=== PATIENT | male | born 1990 | race Caucasian/White ===

== ENCOUNTER → 2021-02-20 | Outpatient (CLI) | payer OTHER ==
[~2021-02-20] MED LIST: OXYC-325 PO
== END ==
LOC: LAB 11:33
PROVIDERS: ATTEND Surgery
DX: Z01.812 Encounter for preprocedural laboratory examination (principal); L05.91 Pilonidal cyst without abscess; Z20.822 Contact with and (suspected) exposure to COVID-19
CPT/HCPCS: U0003

== ENCOUNTER 2021-02-25 07:01 | Day surgery (SDC) | payer OTHER ==
[~2021-02-25 07:01] MED LIST changes: +ACETAMINOPHEN 500 MG TABLET PO ONE; +HYDROmorphone 2 MG/ML VIAL IVP PRN; +IV RINGERS,LACTATED 1000ML 1,000 ML IV SCH; +MORPHINE SULFATE 2 MG/ML VIAL. IVP PRN; -OXYC-325 PO; +PROCHLORPERAZINE 10 MG/2 ML VIAL. IVP PRN; +fentaNYL PF VIAL 100 MCG/2 ML VIAL IVP PRN
[2021-02-25] MEDS ORDERED: BUPIVACAINE-EPI 0.25% 30 ML VIAL KIT. ONE (07:14)
[2021-02-25] MEDS ORDERED: ONDANSETRON PF 4 MG/2 ML VIAL. ONE ×2 (07:37→09:57)
[2021-02-25] MEDS ORDERED: DEXAMETHASONE SOD PHOS 4 MG/ML VIAL ONE (07:37)
[2021-02-25] MEDS ORDERED: fentaNYL PF VIAL 100 MCG/2 ML VIAL ONE (07:37)
[2021-02-25] MEDS ORDERED: PROPOFOL 10 MG/ML (20ML) VIAL. IV ONE ×2 (07:37→08:37)
[2021-02-25] MEDS ORDERED: LIDOCAINE 2% PF 5 ML VIAL. ONE (07:37)
[2021-02-25] MEDS ORDERED: SUCCINYLCHOLINE 200 MG/10 ML VIAL. ONE (07:56)
[2021-02-25] MEDS ORDERED: ROCURONIUM 50 MG/5 ML VIAL. ONE (07:56)
[2021-02-25] MEDS ORDERED: FAMOTIDINE 20 MG/2 ML VIAL ONE (08:22)
[2021-02-25] MEDS ORDERED: NEOSTIGMINE METHYLSULFATE 5 MG/5 ML SYRINGE. ONE (08:37)
[2021-02-25] MEDS ORDERED: KETOROLAC 30 MG/ML VIAL. ONE (08:37)
[2021-02-25] MEDS ORDERED: GLYCOPYRROLATE 1 MG/5 ML VIAL. ONE (08:37)
[2021-02-25] MEDS ORDERED: SEVOFLURANE 31 TO 60 MINUTES. IH ONE (08:40)
--- NOTE | 2021-02-25 08:47 | PDOC4 ---
Operative Note Operative Note Date: February 252020 at 844 Preoperative diagnosis pilonidal cyst Postoperative diagnosis: Right gluteal mass Procedure: Excision of gluteal mass Specimen right gluteal mass Dictation: Patient is 30-year-old male with gluteal cleft wound/mass has been present with occasional drainage. Procedure of pilonidal cystectomy was explained to the patient detail risk-benefit were also discussed including bleeding infection alternatives this procedure also discussed with the patient who seemed to understand and gave a verbal written consent to have the procedure performed. Patient was taken to the operating room placed in the supine position general anesthesia was initiated once patient was sleeping intubated he was repositioned in prone position and his buttocks was prepped and draped usual sterile fashion using Betadine scrub and solution. On examination of the cleft the open wounds were lower then the cleft for a pilonidal cyst into the right side is. Be either mass or just chronically draining abscesses. This area was injected with quarter percent Marcaine with epinephrine elliptical incision was made 15 blade scalpel the skin and tissue where these openings were were completely excised and sent for pathology. The wound was then closed in 2 layers of deep layer running 3-0 Vicryl and the skin was reapproximated for subcuticular Monocryl. Wound was dressed with ABD. Patient was repositioned to supine positioning awakened and extubated operating room taken to recovery in stable condition all sponge instrument needle counts listed as correct estimated blood loss 10 mL GREER TRUONG MD Feb 25, 2021 08:47
--- NOTE | 2021-02-25 08:49 | DISCH ---
DISCHARGE INSTRUCTIONS Condition on Discharge Condition on Discharge: Stable Activity After Discharge Activity Instructions for Disc: Avoid exertion Diet after Discharge Diet after Discharge: Regular Wound Incision Care Other wound/incision instructi: May shower in 24-hour Contacting the after DC Call your doctor for: If your condition worsens Follow-Up Follow up with: Dr. Truong in 2 weeks GREER TRUONG MD Feb 25, 2021 08:49
[2021-02-25] MEDS ORDERED: OXYC-325 PO (09:20)
[2021-02-25] MEDS ORDERED: oxyCODONE/APAP 5/325 1 TAB TABLET PO ONE ×2 (09:30)
[2021-02-25 09:50] VITALS: BP 112/63
[2021-02-25] MEDS ORDERED: ONDANSETRON PF 4 MG/2 ML VIAL. IVP ONE (10:00)
[2021-02-25] MEDS ORDERED: PROCHLORPERAZINE 10 MG/2 ML VIAL. ONE (10:17)
--- NOTE | 2021-02-27 18:10 | PATHOLOGY ---
[facility] Accession Number: [id number] . 01 Material submitted: . buttock - RIGHT GLUTEAL MASS. Modifiers: right . 01 Clinical history: . PILONIDAL CYSTECTOMY . 02 Diagnosis: Skin and subcutaneous tissue, right gluteal mass (pilonidal cystectomy): - Pilonidal abscess/sinus tract, with surrounding fibrosis, chronic inflammation, and focal hemosiderin-laden macrophages. (JPM:carlos; 02/27/2021) [facility] 02/27/2021 1635 Local . 02 Comment: There is no evidence of malignancy. (JPM:carlos; 02/27/2021) . 02 Electronically signed: . Blas Romero MD, Pathologist NPI- [id number] . 01 Gross description: . Received in formalin labeled "Stanislaw Anguiano and right gluteal mass". Received is an unoriented elliptical excision of skin measuring 5.0 x 1.3 and excised to a depth of 1.6 cm. The skin surface is haired pale mir with multiple firm pink-mir raised nodules ranging from 0.7-1.6 cm in greatest dimension. The specimen is inked black. Sectioning reveals mottled pink-mir cut surfaces with a cystic space measuring 4.0 x 0.3 cm located 0.6 cm from the skin surface filled with white-yellow caseous material. The specimen is entirely submitted in cassettes A1 through A5. Block [place]: A1 - thru A4 serial sections A5 - remaining serial sections tips (BLJ; 02/26/2021) BLJ/J 02/26/2021 1625 Local . 02 Pathologist provided ICD-10: L05.01, L90.5, L98.9 . 02 CPT . 306353 Specimen Comment: A courtesy copy of this report has been sent to [phone] Specimen Comment: Report sent to Performed at: [address], [place] [id number] MD Raulito Onfore MD Phone: [phone] [facility]: [facility] [address] [place], [place] [id number] MD Blas Romero MD Phone: [phone]
== END 2021-02-25 11:05 | disposition home or self-care (01) ==
LOC: SURG 07:01
PROVIDERS: ATTEND Surgery
DX: L05.91 Pilonidal cyst without abscess (principal); L90.5 Scar conditions and fibrosis of skin; L98.9 Disorder of the skin and subcutaneous tissue, unspecified; E66.9 Obesity, unspecified; Z79.899 Other long term (current) drug therapy; Z98.890 Other specified postprocedural states
CPT/HCPCS: 11770; 88304; A4930; A6253; A6402; J0330; J0690; J0780; J1100; J1885; J2405; J2704; J2710; J3010; J3490